=== PATIENT | male | born 1980 | race African-American/Black ===

== ENCOUNTER 2017-06-12 07:48 | Emergency (ER) | payer OTHER ==
[~2017-06-12] VITALS: Ht 167.6 cm; Wt 63.2 kg
[2017-06-12 08:02] VITALS: BP 138/85
[2017-06-12] MEDS ORDERED: IBUPROFEN 600 MG TABLET PO ONE (08:15)
== END 2017-06-12 08:09 | disposition home or self-care (01) ==
LOC: EMS 07:51
DX: M21.612 Bunion of left foot (principal); Z87.891 Personal history of nicotine dependence
CPT/HCPCS: 99282

== ENCOUNTER 2021-02-02 09:02 | Emergency (ER) | payer OTHER ==
[~2021-02-02] VITALS: Ht 167.6 cm; Wt 63.6 kg
[2021-02-02 09:39] LABS: COVID AG,FIA SOURCE NASOPHARYNGEAL
[2021-02-02 10:26] VITALS: BP 110/70
== END 2021-02-02 10:28 | disposition home or self-care (01) ==
LOC: EMS 09:02
DX: J02.9 Acute pharyngitis, unspecified (principal); Z20.822 Contact with and (suspected) exposure to COVID-19
CPT/HCPCS: 87426; 99283

== ENCOUNTER 2025-08-23 15:06 | Emergency (ER) | payer OTHER ==
[~2025-08-23] VITALS: Ht 167.6 cm; Wt 68.2 kg
[~2025-08-23 15:06] MED LIST: NAPR-1196 PO
[2025-08-23 15:20] VITALS: BP 144/97; PULSE 82; RESP 18; TEMP 98.4; O2SAT 95
[2025-08-23 15:51] LABS: PLATELET COUNT (AUTO) 332 K/uL (150-450); RED BLOOD CELL COUNT(AUTO) 5.45 MIL/uL (4.50-5.90); RED CELL DISTRIBUTION WIDTH 12.7 % (11.5-14.5); WHITE BLOOD COUNT (AUTO) 8.7 K/uL (4.5-11.0)
[2025-08-23 15:59] LABS: CALCIUM, TOTAL 9.1 mg/dL (8.8-10.5); CREATININE 0.79 mg/dL (0.60-1.30); GLOMERULAR FILTR. RATE CALC > 60 mL/min (>60); GLUCOSE,RANDOM 115 mg/dL (70-110); SODIUM SERUM 138 mmol/L (136-145); UREA NITROGEN, BLOOD 6 mg/dL (7-18)
[2025-08-23 16:07] LABS: TROPONIN I-HIGH SENSITIVITY 4 ng/L (<76)
[2025-08-23 16:18] LABS: COVID AG,FIA SOURCE NASAL SWAB; SARS-COV2 (COVID) ANTIGEN,FIA Negative (Negative)
[2025-08-23 16:19] LABS: INFLUENZA TYPE A NEGATIVE FOR TYPE A (NEGATIVE); INFLUENZA TYPE B NEGATIVE FOR TYPE B (NEGATIVE)
[2025-08-23] MEDS ORDERED: BENZ-227 PO (17:29)
[2025-08-23] MEDS ORDERED: PRED-554 PO (17:29)
[2025-08-23] MEDS: ALBUTEROL SULFATE HFA 90 MCG/PUFF 8 GM INHALER IH ONE (17:42)
== END 2025-08-23 18:07 | disposition home or self-care (01) ==
LOC: EMS 15:06
DX: B34.9 Viral infection, unspecified (principal); M10.9 Gout, unspecified; Z20.822 Contact with and (suspected) exposure to COVID-19
CPT/HCPCS: 99285; 71045; 87426; 80048; 84484; 85025; 87804; 36415; 94640; 93005; J7512; J3535

== ENCOUNTER 2025-09-28 09:32 | Emergency (ER) | payer OTHER ==
[2025-09-28] VITALS (7 sets, daily range): BP systolic 136; BP diastolic 82; PULSE 59–88; RESP 18–20; TEMP 97.7; O2SAT 97–100
[~2025-09-28] VITALS: Ht 170.2 cm; Wt 77.3 kg
[~2025-09-28 09:32] MED LIST changes: +BENZ-227 PO; +PRED-554 PO
[2025-09-28] MEDS: IPRATROPIUM BROMIDE 0.5 MG/2.5 ML NEB SOLUTION NEB ONE ×2 (11:06→12:28)
[2025-09-28] MEDS: ALBUTEROL SULFATE 2.5 MG/0.5 ML NEB SOLUTION NEB ONE ×2 (11:07→12:28)
[2025-09-28] MEDS ORDERED: PRED-554 PO (14:17)
[2025-09-28] MEDS ORDERED: ALBU18HF12 IH (14:17)
[2025-09-28] MEDS: ALBUTEROL SULFATE HFA 90 MCG/PUFF 8 GM INHALER IH ONE (14:44)
== END 2025-09-28 15:04 | disposition home or self-care (01) ==
LOC: EMS 09:32
DX: J98.01 Acute bronchospasm (principal); J44.9 Chronic obstructive pulmonary disease, unspecified; M10.9 Gout, unspecified; Z87.891 Personal history of nicotine dependence; Z79.52 Long term (current) use of systemic steroids; Z91.0110 Allergy to milk products, unspecified
CPT/HCPCS: 71045; 94060; 94640; 99284; J3535; J7613